=== PATIENT | male | born 1995 | race Hispanic/Latino ===

== ENCOUNTER 2024-05-04 14:09 | Emergency (ER) | payer SELFPAY ==
[~2024-05-04] VITALS: Ht 185.4 cm; Wt 136.1 kg
[2024-05-04 14:22] VITALS: TEMP 98.1
[2024-05-04 14:28] VITALS: PULSE 75; RESP 16; O2SAT 99
== END 2024-05-04 14:46 | disposition home or self-care (01) ==
LOC: ER 14:18
DX: M54.2 Cervicalgia (principal); M54.6 Pain in thoracic spine; V43.62XA Car passenger injured in collision with other type car in traffic accident, initial encounter; Y92.488 Other paved roadways as the place of occurrence of the external cause
CPT/HCPCS: 99282